=== PATIENT | female | born 1960 | race Caucasian/White ===

== ENCOUNTER → 2016-08-04 | Outpatient (CLI) | payer OTHER ==
[~2016-08-04] MED LIST: AMLO-110 PO; ATOR10TA82 PO; CIPR1TAB10 PO; ERGO500037 PO; IBUP600T44 PO; LANS30CA12 PO; PREG1CAP28 PO; RANI300T2 PO; TRAM-10 PO
--- NOTE | 2016-08-04 13:11 | MAMMOGRAPHY REPORT ---
BILATERAL DIGITAL DIAGNOSTIC MAMMOGRAM TOMOSYNTHESIS WITH CAD: 08/04/2016 CLINICAL HISTORY: Interval follow-up of left breast calcifications. Due for routine right mammograp hy. History of bilateral reduction mammoplasty. The patient reports no current complaints. TECHNIQUE: Breast tomosynthesis in addition to standard 2D mammography was performed. Current study was also evaluated with a Computer Aided Detection (CAD) system. Bilateral CC and MLO 2-D and hilda synthesis images and spot magnification left CC and ML views were obtained. COMPARISON: Comparison is made to exams dated: 08/31/2015 mammogram, 02/23/2015 mammogram, 02/19/2015 mammogram, 04/28/2011 mammogram, and 12/20/2009 mammogram. BREAST COMPOSITION: There are scattered areas of fibroglandular density in both breasts. FINDINGS: Spot magnification views of the left breast demonstrate a small 3 mm cluster of coarse het erogeneous calcifications in the left upper outer quadrant. The calcifications are stable dating ba ck to the 02/23/2015 spot magnification views. Given the long-term stability and benign morphology, the calcifications are considered benign and may represent a degenerating fibroadenoma or dystrophic calcifications from fat necrosis. The remainder of both breasts are stable compared to prior exams, without suspicious masses, calcifi cations, or areas of architectural distortion noted. There are stable postsurgical changes from song ateral reduction mammoplasty. Other scattered bilateral benign-appearing calcifications are not sig nificantly changed. IMPRESSION: ACR BI-RADS CATEGORY 2: BENIGN The left breast calcifications are stable dating back to the February 2015 exam, and are considered benign given the morphology and long-term stability. There is no mammographic evidence of malignanc y in either breast. A 1 year screening mammogram is recommended. The patient has been verbally noti fied of the results. Approximately 10% of breast cancers are not detected with mammography. A negative mammographic repor t should not delay biopsy if a clinically suggestive mass is present. Viviane Duarte M.D. /:08/04/2016 11:14:40 Pipe Processor: Aimee LEUNG)([place]), [facility] letter sent: Normal 1/2 BI-RADS Code: ACR BI-RADS Category 2: Benign
== END | disposition home or self-care (01) ==
LOC: C.MAMM 10:26
PROVIDERS: ATTEND Internal Medicine
DX: R92.1 Mammographic calcification found on diagnostic imaging of breast (principal)